=== PATIENT | male | born 1945 | race Hispanic/Latino ===

== ENCOUNTER 2020-12-11 18:14 | Emergency (ER) | payer MEDICARE ==
--- NOTE | 2020-12-11 18:42 | Emergency Department Report ---
ED Dizziness HPI - General Chief Complaint: Dizziness Stated Complaint: FALL/DIZZINESS Time Seen by Provider: 12/11/20 18:31 Source: patient, family (Breanna daughter [phone]), EMS Mode of arrival: Stretcher Limitations: No Limitations - History of Present Illness Initial Comments: Chief complaint fall History obtained from EMS, daughter Breanna per phone [phone] also obtained per patient This is a 75-year-old gentleman with history of CVA x2, AL, diabetes mellitus, alcohol dependence and lymphedema who presents with fall. Patient had a fall at [facility]. He was able to get up with assistance. He then drove to a fast food restaurant. When he got home he also had a second fall. He does has not been feeling too well. He denies any injury from the falls. He denies any head trauma or syncope. He denies any neck pain. According to the daughter he moved from [place] 2 years ago. He has been receiving primary care. Primary care physician is concerned about lower extremity swelling. Daughter states that her father is in poor health due to to his lifestyle choices. He is retired. He was a salesman for some life insurance. He stopped smoking cigarettes in . Complaint: dizziness, lightheadedness -: Gradual, This morning Timing: gradual onset Description: lightheadedness History of Same: No History of Trauma: No (2 falls today) Severity: mild Improves With: nothing Worsens With: nothing Associated Symptoms: denies other symptoms - Related Data Allergies Allergy/AdvReac Type Severity Reaction Status Date / Time No Known Allergies Allergy Unverified 12/11/20 18:35 ED Review of Systems ROS: Stated complaint: FALL/DIZZINESS Other details as noted in HPI Comment: All other systems reviewed and negative Constitutional: denies: fever, malaise Respiratory: denies: cough, shortness of breath Cardiovascular: denies: chest pain Gastrointestinal: denies: abdominal pain, nausea, vomiting Neurological: denies: headache ED Past Medical Hx - Past Medical History Previous Medical History?: Yes Hx Hypertension: Yes Hx CVA: Yes Hx Heart Attack/AMI: Yes Hx Diabetes: Yes - Surgical History Past Surgical History?: Yes Hx Coronary Stent: Yes (one cardiac stent) Hx Open Heart Surgery: Yes (triple bypass surgery) Additional Surgical History: surgery on right forearm, fracture repair - Family History Family history: hypertension - Social History Smoking Status: Former Smoker Substance Use Type: Alcohol ED Physical Exam - General Limitations: No Limitations General appearance: alert, in no apparent distress, other (Appears chronically ill, disheveled, poor hygiene) - Head Head exam: Present: atraumatic, normocephalic - Eye Eye exam: Present: normal appearance - ENT ENT exam: Present: mucous membranes moist - Neck Neck exam: Present: normal inspection, full ROM - Respiratory Respiratory exam: Present: normal lung sounds bilaterally. Absent: respiratory distress, wheezes, rales, rhonchi - Cardiovascular Cardiovascular Exam: Present: regular rate, normal rhythm, normal heart sounds. Absent: systolic murmur, diastolic murmur, rubs, gallop - GI/Abdominal GI/Abdominal exam: Present: soft, normal bowel sounds. Absent: distended, tenderness, guarding, rebound - Rectal Rectal exam: Present: deferred - Extremities Exam Extremities exam: Present: pedal edema, other (lymphedema brace left leg) - Neurological Exam Neurological exam: Present: alert, oriented X3 - Psychiatric Psychiatric exam: Present: normal mood, flat affect - Skin Skin exam: Present: warm, dry, intact, pallor. Absent: rash ED Course Vital Signs 12/11/20 18:30 Temperature 97.9 F Pulse Rate 73 Respiratory 19 Rate Blood Pressure 162/81 O2 Sat by Pulse 97 Oximetry ED Medical Decision Making - Lab Data Result diagrams: 12/11/20 18:38 12/11/20 18:38 Laboratory Results - last 24 hr 12/11/20 12/11/20 12/11/20 18:38 18:38 18:42 WBC 4.6 RBC 4.38 Hgb 13.7 Hct 41.3 MCV 94 MCH 31 MCHC 33 RDW 14.2 Plt Count 149 Lymph % (Auto) 17.9 Crenshaw % (Auto) 9.0 H Eos % (Auto) 2.1 Baso % (Auto) 0.9 Lymph # (Auto) 0.8 L Crenshaw # (Auto) 0.4 Eos # (Auto) 0.1 Baso # (Auto) 0.0 Seg Neutrophils % 70.1 H Seg Neutrophils # 3.2 Sodium 141 Potassium 3.3 L Chloride 103.7 Carbon Dioxide 25 Anion Gap 16 BUN 15 Creatinine 1.3 Estimated GFR 54 BUN/Creatinine Ratio 12 Glucose 99 Calcium 8.6 Total Bilirubin 0.80 AST 20 ALT 15 Alkaline Phosphatase 52 Total Protein 6.2 L Albumin 3.7 L Albumin/Globulin Ratio 1.5 Plasma/Serum Alcohol 0.09 H - Medical Decision Making 2 falls due to alcohol ingestion. Hours after patient's last intake of alcohol, blood alcohol level is still above legal limit at 0.09. CBC chemistry within normal limits with exception of mild hypokalemia. He takes potassium chloride tablets at home. I encouraged him to avoid drinking alcohol and driving. He is discharged home. Critical care attestation.: If time is entered above; I have spent that time in minutes in the direct care of this critically ill patient, excluding procedure time. ED Disposition Clinical Impression: Hypokalemia, Falls, Alcohol ingestion Disposition: DC-01 TO HOME OR SELFCARE Is pt being admited?: No Does the pt Need Aspirin: No Condition: Stable Instructions: Hypokalemia
[2020-12-11 18:52] LABS: Basophils % (Auto) 0.9 % (0.0-1.8); Eosinophils # (Auto) 0.1 K/mm3 (0.0-0.4); Eosinophils % (Auto) 2.1 % (0.0-4.3); Hematocrit 41.3 % (35.5-45.6); Hemoglobin 13.7 gm/dl (11.8-15.2); Lymphocytes # (Auto) 0.8 K/mm3 (1.2-5.4); Lymphocytes % (Auto) 17.9 % (13.4-35.0); Mean Corpuscular HGB Conc 33 % (32-34); Mean Corpuscular Volume 94 fl (84-94); Monocytes # (Auto) 0.4 K/mm3 (0.0-0.8); Platelet Count 149 K/mm3 (140-440); Red Blood Count 4.38 M/mm3 (3.65-5.03); Red Cell Distribution Width 14.2 % (13.2-15.2)
[2020-12-11 19:11] LABS: Albumin 3.7 g/dL (3.9-5); Calcium 8.6 mg/dL (8.4-10.2)
[2020-12-11 20:36] VITALS: BP 141/74
== END 2020-12-11 20:35 | disposition home or self-care (01) ==
LOC: ED 18:14
DX: E87.6 Hypokalemia (principal); Z72.89 Other problems related to lifestyle; I10 Essential (primary) hypertension; E11.9 Type 2 diabetes mellitus without complications; Z87.891 Personal history of nicotine dependence; Z98.890 Other specified postprocedural states; Z79.899 Other long term (current) drug therapy
CPT/HCPCS: 36415; 80053; 80320; 85025; 99283; G0480